=== PATIENT | male | born 1940 | race Caucasian/White ===

== ENCOUNTER 2017-12-26 17:57 | Observation (INO) | payer MEDICARE, OTHER ==
[~2017-12-26] VITALS: Ht 175.3 cm; Wt 117.2 kg
[~2017-12-26 17:57] MED LIST: "\\\"BP MED\\\""; ALDACTAZIDE 251 EACH PO; ASPIRIN EC325 MG PO; AUGMENTIN 875-1 EACH PO; AUGMENTIN XR1 TABLET PO; CEFPODOXIME PR200 MG PO; FENOFIBRATE160 MG PO; FLUTICASONE PRO16 GM NAS; GLIPIZIDE XL5 MG PO; GLIPIZIDE10 MG PO; LANTUS100 UNITS/ SQ; LIPITOR40 MG PO; LOSARTAN POTAS100 MG PO; LOSARTAN POTASS25 MG PO; MECLIZINE HCL25 MG PO; METFORMIN HCL1000 MG PO; METOPROLOL TART25 MG PO; MIRAPEX0.125 MG PO; NORCO 5-325 TA1 EACH PO; NOVOLOG100 UNITS/ IV; ONDANSETRON ODT8 MG PO; ONE TOUCH ULTR1 EACH VI; PRAMIPEXOLE0.125 MG PO; PRILOSEC20 MG PO; PROBIOTIC1 EAC1 PO; PROMETH-CODEIN 65 ML PO; PROTONIX40 MG PO; SIMVASTATIN80 MG PO; TRANSDERM-SCOP1 EA TD; TYLENOL325 MG PO; VERAMYST10 GM NAS
--- NOTE | 2017-12-26 22:57 | NUR ---
PT ARRIVES TO ROOM 127 FOR MED/SURG OBSERVATION ADMIT HOUSE CONVENIENCE. TRANSFERRED TO BED BY SLIDING PURPLE SHEET, PT ALERT AND ORIENTED, CURRENTLY HAVING SMALL AMOUNT OF EMESIS, ONE TIME DOSE OF REGLAN GIVEN IV. FAMILY ARRIVES WITH PT, DISCUSSED PLAN OF CARE. PT SETTLED IN BED, NO DISTRESS NOTED, DENIES PAIN OR NEEDS.
--- NOTE | 2017-12-27 01:30 | NUR ---
AWAKENS AND TRIES TO VOID INTO URINAL BUT CANNOT, ALTHOUGH ATTENDS ARE SATURATED. NEW ATTENDS PLACED AND PT REPOSITIONED BACK INTO BED WITH BED ALARM ON.
--- NOTE | 2017-12-27 03:30 | NUR ---
PT HAS BEEN SLEEPING THE LAST COUPLE OF HR, RESP EVEN AND UNLABORED.
--- NOTE | 2017-12-27 05:22 | NUR ---
LAB IN TO DRAW, PT AWAKENS EASILY.
--- NOTE | 2017-12-27 08:45 | NUR ---
PT ASSISTED UP TO CHAIR WITH WALKER. PT FULLY SATURATED ATTENDS CHANGED. PT GIVEN PARTIAL BED BATH, CLEAN SCRUB TOP IN PLACE. PT ABLE TO ASSIST WITH ADL CARES, WASHES OWN FACE AND HANDS. PT REFUSED ORAL CARE. VITALS WNL AT THIS TIME. OREDERED BREAKFAST FOR PT. BLOOD SUGAR IS 155 THIS AM.
--- NOTE | 2017-12-27 09:12 | NUR ---
IV SITE INTACT, NO REDNESS OR SWELLING NOTED, FLUIDS INFUSE EASILY, PT DENIES PAIN AT SITE. PT SITTING UP IN CHAIR AT THIS TIME EATING BREAKFAST WITH GUSTO. PT HAS CALL LIGHT WITHIN REACH, EDUCATED ON HOW TO USE CALL LIGHT. PT IS ALERT AND ORIENTED X4. ABLE TO FEED SELF.
--- NOTE | 2017-12-27 09:30 | NUR ---
PT ABLE TO EAT 100% OF HIS BREAKFAST, DENIES NAUSEA, SITTING UP IN CHAIR.
[2017-12-27] MEDS ORDERED: REGLAN10 MG PO (10:05)
--- NOTE | 2017-12-27 11:10 | NUR ---
PT ASSISTED TO GET DRESSED IN OWN CLOTHES, CLEAN ATTENDS PLACED ON PT. IV SITE REMOVED, TIP OF CATH INTACT, NO REDNESS OR SWELLING NOTE. ALL PERSONAL BELONGINGS RETURNED TO PT. PRINTED DC INSTRUCTIONS SENT WITH PT.
--- NOTE | 2017-12-27 14:30 | EKG ---
[facility] [address] [place] [address] Signed Normal sinus rhythm Right bundle branch block Inferior infarct , age undetermined Abnormal ECG When compared with ECG of 08-AUG-2016 13:25, Inferior infarct is now present Nonspecific T wave abnormality, worse in Anterior leads Confirmed by J CARLOS BURNS DO ([id number]) on 12/27/2017 2:30:42 PM Electronically Signed By: J CARLOS BURNS DO 12/27/17 1430 PATIENT NAME: ERNIE GOLD Electrocardiogram DATE OF : 36 PHYSICIAN: J CARLOS BURNS DO REPORT #: [id number] REPORT IS CONFIDENTIAL AND NOT TO BE RELEASED WITHOUT AUTHORIZATION
== END 2017-12-27 11:15 | disposition home or self-care (01) ==
LOC: ED 17:57 → CCU 17:59
PROVIDERS: ADMIT Student in an Organized Health Care Education/Training Program
DX: E11.43 Type 2 diabetes mellitus with diabetic autonomic (poly)neuropathy (principal); K31.84 Gastroparesis; I10 Essential (primary) hypertension; H91.90 Unspecified hearing loss, unspecified ear; M19.90 Unspecified osteoarthritis, unspecified site; E78.5 Hyperlipidemia, unspecified; I25.10 Atherosclerotic heart disease of native coronary artery without angina pectoris; J44.9 Chronic obstructive pulmonary disease, unspecified; J96.11 Chronic respiratory failure with hypoxia; I69.90 Unspecified sequelae of unspecified cerebrovascular disease; Z87.891 Personal history of nicotine dependence; Z66 Do not resuscitate; Z88.1 Allergy status to other antibiotic agents; Z79.82 Long term (current) use of aspirin; Z79.4 Long term (current) use of insulin; Z79.51 Long term (current) use of inhaled steroids; Z79.899 Other long term (current) drug therapy
CPT/HCPCS: 36415; 51798; 74177; 80048; 80053; 81001; 83036; 83605; 83690; 83735; 85025; 93005; 93010; 96361; 96372; 96374; 96375; 99285; G0378; J1650; J1815; J2765; J7030; J7040; Q9967

== ENCOUNTER 2020-08-16 22:59 | Inpatient (IN) | payer MEDICARE, OTHER ==
[~2020-08-16] VITALS: Ht 175.3 cm; Wt 102.8 kg
[~2020-08-16 22:59] MED LIST changes: +ALBUTEROL2.5 MG/3 M INH; +BAYER CHEWABLE81 MG PO; +BUDESONIDE0.5 MG/2 M INH; +FERROUS SULFAT325 MG PO; +FUROSEMIDE20 MG PO; +IPRAT-ALBUT 0.5-3 ML INH; +LEVOTHYROXINE25 MCG PO; +MIRALAX17 GM PO; +NOVOLOG FL100 UNIT/1 SUB-Q; -NOVOLOG100 UNITS/ IV; +POTASSIUM CHLO10 MEQ PO; +PREDNISONE20 MG PO; +REGLAN10 MG PO
--- OUTSIDE RECORDS SUMMARY | 2020-08-16 23:02 | XMS ---
PreManage Notification: ERNIE GOLD Security Study Director Events No recent Security Events currently on file CRITERIA MET - History of Sepsis Dx - [facility] - 2 Visits in 30 Days CARE PROVIDERS [facility] [employer]. \F\ [facility] PHONE: [phone] MABLE LEÓN [facility] 04/21/2018-Current PHONE: [phone] Daniela Stearns Environmental Monitoring Specialist/Health And Safety Specialist 06/06/2020-Current PHONE: [phone] CESAR LITTLEJOHN Internal Medicine 04/21/2018-Current PHONE: [phone] Jackeline has no Care Guidelines for this patient. ERichardDRichard VISIT COUNT (12 MO.) [address] [place] [address] ZAYRA Arango TOTAL 2 NOTE: Visits indicate total known visits. ED/UCC VISIT TRACKING (12 MO.) 08/16/2020 22:59 [facility] TYPE: Emergency COMPLAINT: - DIFFICULTY BREATHING 08/08/2020 14:02 [facility] TYPE: Emergency DIAGNOSES: - Fatigue - Essential (primary) hypertension - Bradycardia, unspecified - Altered Mental Status - Low Blood Pressure (Symptomatic) - Disorientation, unspecified INPATIENT VISIT TRACKING (12 MO.) 08/08/2020 14:02 [facility] TYPE: Internal Medicine DIAGNOSES: - Personal history of traumatic brain injury - Personal history of transient ischemic attack (TIA), and cerebral infarction without residual deficits - Somnolence - Bradycardia, unspecified - Disorientation, unspecified - Essential (primary) hypertension [email or web address]
[2020-08-16] MEDS ORDERED: K-TAB ER20 MEQ PO (23:32)
[2020-08-16] MEDS ORDERED: STAY AWAKE200 MG PO (23:33)
[2020-08-16] MEDS ORDERED: SENNA-S 8.6-501 EACH PO (23:40)
[2020-08-16] MEDS ORDERED: ELIQUIS5 MG PO (23:40)
[2020-08-16] MEDS ORDERED: METOPROLOL TART25 MG PO (23:42)
[2020-08-16] MEDS ORDERED: PROBIOTIC250 MG PO (23:43)
[2020-08-16] MEDS ORDERED: REGLAN10 MG PO (23:43)
[2020-08-16] MEDS ORDERED: SYMBICORT 16010.2 GM INH (23:44)
[2020-08-16] MEDS ORDERED: VOLTAREN ARTHRI20 GM TOP (23:46)
[2020-08-16] MEDS ORDERED: LANTUS100 UNITS/ SUB-Q (23:51)
[2020-08-16] MEDS ORDERED: HUMALOG100 UNITS/ SUB-Q (23:53)
--- NOTE | 2020-08-17 06:00 | NUR ---
PT ARRIVED TO ROOM 130 AT 0500 VIA STRETCHER, MOVED TO BED WITH DRAW SHEET. PT OPENED EYES ONCE TO VOICE, BUT DOES NOT FOLLOW COMMANDS. PT WITHDRAWS FROM PAINFUL STIMULI. PUPILS ARE EQUAL AND REACTIVE. LUNGS COARSE, DIM, 4L OXYMASK IN PLACE. HR REGULAR. BOWEL TONES ACTIVE. EVANS IN PLACE, DRAINING CONCENTRATED URINE. IV SITE PATENT TO RIGHT FOOT, ADDITIONAL IV SITE STARTED ON FIRST ATTEMPT BY BECKIE GARY IN RIGHT LOWER LEG. IV FLUIDS AND ANTIBIOTIC INFUSION STARTED. SKIN IS COOL, PERIPHERAL PULSES ARE WEAK, DOPPLER UTILIZED IN LOWER EXTREMITIES. DEEP EDEMA PRESENT IN BILATERAL ARMS, MODERATE EDEMA IN FEET.
--- NOTE | 2020-08-17 07:50 | NUR ---
IN PATIENT'S ROOM FOR ASSESSMENT AND VITALS. PT REMAINS SOMNOLENT, BUT DOES WITHDRAW TO PAIN AND DOES RAISE EYEBROWS IN AN ATTEMPT TO OPEN EYES WHEN NAME IS CALLED.PT DOES NOT EVER MAKE EYE CONTACT. PT IS VERY EDEMATOUS ON UPPER ARMS, WITH 2+ EDEMA NOTED. PT HAS IV SITES IN HIS RIGHT LEG AT THIS TIME. PT NOTED TO BE MOVING HIS LOWER LEGS IN A REFLEXIC TYPE OF MOTION. PT TURNED DOWN TO 2 L OXYMASK. OFF OF OXYGEN, PATIENT DESATURATED TO 87% WHILE SLEEPING BUT TURNED DOWN FROM 4 L TO 2 L. IVF CONTINUE AND IV ABX INFUSING AT THIS TIME. CONTINUE TO MONITOR.
--- NOTE | 2020-08-17 09:17 | NUR ---
Updated notes sent to [facility] as requested.
--- NOTE | 2020-08-17 09:37 | NUR ---
IN PATIENT'S ROOM TO PERFORM ASSESSMENT AND BLOOD GLUCOSE CHECK. PATIENT TURNED AND ASSESSED. PATIENT REPOSITIONED IN BED, ARMS ELEVATED WITH PILLOWS. PATIENT PLACED ON 2L NC. PATIENT APPEARS TO BE COMFORTABLE. OT IN THE ROOM TO SEE PATIENT.
[2020-08-17] MEDS ORDERED: LOSARTAN POTASS50 MG PO (11:32)
[2020-08-17] MEDS ORDERED: LEVOTHYROXINE75 MCG PO (11:35)
--- NOTE | 2020-08-17 11:43 | NUR ---
PATIENT CONTINUES TO REST IN BED AND NOTED TO BE MOVING AROUND A LITTLE MORE. PATIENT NOTED TO BE MOVING OXYGEN OFF OF HIS FACE AT TIMES. PT STILL DOES NOT HAVE SUSTAINED EYE OPENING BUT DOES RAISE EYEBROWS. PUPILS ARE EQUAL. PT MAKING ADEQUATE URINE OUTPUT. OT WORKED WITH PATIENT EARLIER AND TRIED TO DO LYHMPHATIC MASSAGE FOR HIS EDEMA IN LOWER ARMS. PATIENT HAS CONTINUED TO HAVE BRADYCARDIA AT TIMES, BUT REMAINS IN A SINUS RHYTHM, BUT DOES GO DOWN TO 38 AT TIMES BUT DOES NOT SUSTAIN THAT LOW. DR. BURNS IN TO SEE PATIENT EARLIER THIS AM. PLAN TO HAVE AN LP DONE ON THIS PATIENT WHEN BLOCK MECHANIC AVAILABLE TO DO THIS. CONTINUE TO MONITOR CLOSELY.
[2020-08-17] MEDS ORDERED: PULMICORT0.5 MG/2 M INH (11:59)
[2020-08-17] MEDS ORDERED: ENULOSE10 GM/15 M PO (12:01)
[2020-08-17] MEDS ORDERED: MILK OF MA400 MG/5 M PO (12:02)
[2020-08-17] MEDS ORDERED: ALBUTEROL2.5 MG/3 M INH (12:03)
[2020-08-17] MEDS ORDERED: DULCOLAX10 MG PR (12:03)
[2020-08-17] MEDS ORDERED: FLEET ENEMA133 ML PR ×2 (12:04→12:07)
[2020-08-17] MEDS ORDERED: ONDANSETRON ODT8 MG SL (12:12)
--- NOTE | 2020-08-17 13:14 | NUR ---
THIS RN INTO ROOM AFTER REPORT RECVD FROM DANNIELLE BUTTS FOR LUNCH RELIEF. PATIENT RESTING IN BED, EYES CLOSED. RR EVEN AND UNLABORED. IVF DECREASED TO 75 MLS/HR PER MD ORDER. CALL LIGHT RESTING ON PATIENTS LAP.
--- NOTE | 2020-08-17 13:27 | NUR ---
Spoke with pt's as per report pt is nonverbal today. She states pt has resided at [facility] x 6 1/2 years, was admitted to [facility] and then discharged to [facility]. She feels pt shoul transition to Hospice if the antibiotics don't work. Pt requires full care at SNF. Pt admitted to [facility] approx 24 hours ago and has been somu lent since.
--- NOTE | 2020-08-17 13:41 | NUR ---
NICOL SZYMANSKI IN TO UNIT, DISCUSSING PATIENT WITH DR. BURNS.
--- NOTE | 2020-08-17 13:42 | NUR ---
PER NICOL SZYMANSKI PATIENT WILL NEED TO HOLD ANTICOAGULATION FOR 3 DAYS PRIOR TO LUMBAR PUNCTURE. PER NICOL SZYMANSKI AND DR. BURNS PLAN FOR LP SATURDAY. PER CONTINUE ABX AND PLAN OF CARE AT THIS TIME.
--- NOTE | 2020-08-17 13:57 | EKG ---
[facility] [address] [place] [address] Signed Sinus rhythm with blocked premature atrial complexes Right bundle branch block Abnormal ECG When compared with ECG of 21-APR-2018 12:00, fusion complexes are no longer present premature atrial complexes are now present QT has shortened Confirmed by J CARLOS BURNS DO ([id number]) on 08/17/2020 1:57:05 PM Electronically Signed By: J CARLOS BURNS DO 08/17/20 1357 PATIENT NAME: ERNIE GOLD Electrocardiogram DATE OF : 36 PHYSICIAN: J CARLOS BURNS DO REPORT #: [id number] REPORT IS CONFIDENTIAL AND NOT TO BE RELEASED WITHOUT AUTHORIZATION
--- NOTE | 2020-08-17 14:16 | NUR ---
IN TO PATIENT'S ROOM TO EMPTY EVANS CATHETER. PATIENT RESTING IN BED. PATIENT RESPONDS TO NAME BUT THEN FALLS BACK TO SLEEP. NO SIGNS OF PAIN AT THIS TIME PER THE FLACC SCALE. PHYSICAL THERAPY IN TO WORK WITH PATIENT.
--- NOTE | 2020-08-17 14:59 | NUR ---
BECKIE SPICER INFORMED ME PT IS MOSTLY NON-VERBAL AND PRESENTLY ASLEEP. WILL NOT DISTURB PT. WILL CHECK BACK AGAIN
--- NOTE | 2020-08-17 15:01 | NUR ---
HEARD PATIENT CALLING OUT IN ROOM. WHEN ASKED WHAT WAS NEEDED PATIENT STATED "HONEY, I NEED A WARM QUILT". WARM BLANKETS GIVEN TO PATIENT. MOUTH SWAB WITH WATER WAS ALSO GIVEN TO PATIENT. WHEN ASKED, PATIENT STATES THAT HE IS IN THE HOSPITAL IN [place]. PATIENT HAS SOME COMPLAINTS OF COCCYX DISCOMFORT. PATIENT REPOSITIONED.
--- NOTE | 2020-08-17 17:06 | NUR ---
IN TO PATIENTS ROOM TO CHECK ON HIM. AT BEDSIDE. STATED THAT PATIENT WANTED SOMETHING TO DRINK. PATIENT TOLERATED A FEW SIPS OF WATER. PATIENT HAS NO COMPLAINTS AT THIS TIME.
--- NOTE | 2020-08-17 18:28 | NUR ---
IN TO SEE PATIENT. IS AT BEDSIDE, STATES PATIENT IS HUNGRY. PATIENT RESPONDS TO VOICE. WHEN ASKED, PT STATED "VERY HUNGRY". PATIENT ABLE TO TOLERATE 8OZ ENSURE. PATIENT STATES THAT HE IS IN NO DISCOMFORT. EVANS CATHETER EMPTIED.
--- NOTE | 2020-08-17 19:50 | NUR ---
SHIFT REPORT RECEIVED FROM SN CECIL AND BECKIE SPICER. PT CURRENTLY RESTING IN BED, 2L O2 VIA NC IN PLACE. R.T. IN AT THIS TIME FOR SCHEDULED BREATHING TREATMENTS.
--- NOTE | 2020-08-17 20:30 | NUR ---
ASSESSMENT COMPLETED. PT IS LETHARGIC AND SOMEWHAT SLOW TO RESPOND, BUT IS ANSWERING QUESTIONS. SLIGHTLY CONFUSED TO PLACE AND DATE; KNOWS WE ARE IN THE HOSPITAL, BUT THINKS WE ARE IN [facility] AND THINKS THE YEAR IS 2019. REPORTS PAIN TO HIM BOTTOM, PRN TYLENOL GIVEN AND PT REPOSITIONED ONTO RIGHT SIDE WITH PILLOW SUPPORT. LUNGS CLEAR, DIM, 2L O2 VIA NC IN PLACE. HR IRREGULAR, RATE 70'S. BOWEL TONES ACTIVE. EVANS PATENT, CATH CARE PROVIDED. SKIN GROSSLY INTACT, EDEMA PRESENT IN ARMS AND FEET, LIMBS ELEVATED ON PILLOWS. EXTREMITIES COOL WITH SLOW CAP REFILL, PERIPHERAL PULSES WEAK AND DOPPLER USED FOR PEDAL PULSES. IV SITES INTACT AND PATENT. PT TOLERATED PILLS CRUSHED IN APPLESAUCE WELL.
--- NOTE | 2020-08-17 21:57 | NUR ---
PT COULD BE HEARD CALLING OUT. PT REPORTS THAT HIS BOTTOM IS STILL HURTING. REMINDED HIM THAT I GAVE HIM TYLENOL AND ALSO REPOSITIONED HIM ONTO HIS LEFT SIDE WITH PILLOW SUPPORT, LIMBS REMAIN ELEVATED. ALSO LOWERED HEAD OF BED SLIGHTLY TO RELIEVE SOME PRESSURE. ANTIBIOTIC INFUSION STARTED. PT NOW SLEEPING AND LIGHTLY SNORING.
--- NOTE | 2020-08-18 00:01 | NUR ---
PT SLEEPING, NO APPARENT DISTRESS, RESPIRATIONS EVEN AND UNLABORED. LUNGS REMAIN CLEAR/DIM, 2L O2 IN PLACE. HR OCCASIONALLY IRREGULAR, RATE 70'S. BOWEL TONES ACTIVE. IV SITES REMAIN INTACT, FLUIDS INFUSING WNL. PILLOW REMOVED FROM BEHIND PT, NOW POSITIONED SUPINE, EXTREMITIES REMAIN ELEVATED.
--- NOTE | 2020-08-18 04:21 | NUR ---
PT SLEEPING, ASSESSMENT COMPLETED AND UNCHANGED. PT REPOSITIONED ONTO RIGHT SIDE WITH PILLOW SUPPORT. IV SITES INTACT AND PATENT. EVANS PATENT. VITAL SIGNS STABLE.
--- NOTE | 2020-08-18 04:59 | NUR ---
PT CALLED OUT, NEEDED DRINK OF WATER. WAS ABLE TO DRINK WITHOUT ISSUE. CALL LIGHT WITHIN REACH. NO FURTHER REQUESTS AT THIS TIME.
--- NOTE | 2020-08-18 05:57 | NUR ---
PT REPOSITIONED ONTO LEFT SIDE WITH PILLOW SUPPORT. LIMBS REMAIN ELEVATED ON PILLOWS. CALL LIGHT WITHIN REACH.
--- NOTE | 2020-08-18 07:18 | NUR ---
PT COMPLAINING OF PAIN TO BOTTOM, PRN TYLENOL GIVEN. PT ABLE TO SWALLOW PILLS WHOLE WITH WATER, TOLERATED WELL.
--- NOTE | 2020-08-18 07:18 | NUR ---
REPORT FROM WELLNESS PROGRAM ADMINISTRATOR RECIEVED. PT REPORTS PAIN IN HIS BOTTOM AND TYLENOL ADMINISTERED. PT SLOW TO RESPOND AND BREATHING MOSTLY THROUGH HIS MONTH. CALL LIGHT WITHIN REACH AND HEAD OF BED SLIGHTLY ELEVATED. WILL CONTINUE TO MONITOR CLOSELY.
--- NOTE | 2020-08-18 07:30 | NUR ---
PATIENT SHIFT REPORT RECIEVED FROM CORRECTIONAL MEDICINE PHYSICIAN RN. PATIENT RESTING IN BED AT THIS TIME. CORRECTIONAL MEDICINE PHYSICIAN RN IN TO GIVE TYLENOL PER PATIENT REQUEST. STUDENT NURSE GINGER WILL BE TAKING CARE OF PATIENT WITH THIS RN TODAY. NO OTHER NEEDS AT THIS TIME. WILL CONTINUE TO CLOSELY MONITOR.
--- NOTE | 2020-08-18 08:06 | NUR ---
ASSESSMENT COMPLETE. PT REPORT "CAN YOU MAKE MY ASS STOP HURTING" STUDENT NURSE GINGER ALONG WITH PAYROLL MASTER ADJUSTED PT AND PLACED PILLOW UNDER HIS BOTTOM. PT HAS BILATER PITTING EDEMA IN HIS UPPER EXTREMITIES. EVANS CATH IN PLACE WITH YELLOW URINE OUTPUT. LUNG SOUNDS CLEAR IN THE UPPER LOBES ANDS DIMINISHED IN THE LOWER LOBES. ROLLED TOWEL PLACED UNDER PT WRIST. PT RESTING QUIETLY. HEAD OF ELEVATED SLIGHTLY. CALL LIGHT WITHIN REACH. WILL CONTINUE TO MONITOR CLOSELY.
--- NOTE | 2020-08-18 09:03 | NUR ---
IN WITH STUDENT NURSE GINGER TO GIVE AM MEDICATIONS. ASSESSMENT COMPLETED. PATIENT IS AWAKE AND TALKING. BREAKFAST AT THE BEDSIDE. WILL CONTINUE TO CLOSELY MONITOR.
--- NOTE | 2020-08-18 09:59 | NUR ---
Updated notes faxed to Crystal at [facility] per request.
--- NOTE | 2020-08-18 10:14 | NUR ---
PT RESTING IN BED WITH EYES CLOSED. ANTIBIOTIC IV SWITCHED OUT IN THE UPPER LEFT ARM.HEAD OF BED ELEVATED. LEGS ARE ADJUSTED TO HELP RELIEVE THE PRESSURE ON HIS BOTTOM. NO OTHER CONCERNS AT THIS TIME. CALL LIGHT WITHIN REACH. WILL CONTINUE TO MONITOR CLOSELY.
--- NOTE | 2020-08-18 10:44 | NUR ---
MD BURNS ON THE FLOOR. ASKED HOW PT WAS DOING. STUDENT NURSE INFORMED HIMS THAT PT WAS NOW CALLING FOR THE NURSE INSTEAD OF HONEY. THAT HE IS ABLE TO EAT SOFT FOOD AND THAT HE ATE 75% OF BREAKFAST. WAS ALSO INFORMED THAT PT TOLERATES SWOLLOWING PILLS WELL. WILL CONTINUE TO MONITOR CLOSELY FOR CHANGES.
--- NOTE | 2020-08-18 12:11 | NUR ---
ASSESSMENT COMPLETE. PT SWITCHED TO ROOM AIR TO SEE HOW WELL IT WILL BE TOLERATED. HE IS VERY TIRED AND BREATHS WITH HIS MOUTH. PT UNDERSTOOD THAT HE WAS IN THE HOSPITAL. KNOWS HIS NAME AND DATE OF . DID NOT KNOW WHY HE WAS IN THE HOSPITAL. SALINE LOCKED ALL THREE IV SITES, ALL WITHIN NORMAL AND FLUSH. SLOW TO RESPOND. BED ELEVATED. CALL LIGHT WITHIN REACH. WILL CONTINUE TO MONITOR CLOSELY.
--- NOTE | 2020-08-18 12:30 | NUR ---
PATIENT RESTING IN BED AT THIS TIME. STAFF HAVE CONTINUED TO REPOSITION PATIENT EVERY 2 HOURS IF NOT SOONER PER PATIENT REQUEST. PATIENTS BLOOD SUGAR DONE. INSULIN GIVEN. PATIENTS FOOD ARRIVED AT THE BEDSIDE. STUDENT NURSE IN TO ASSIST PATIENT. PATIENT HAS BEEN ON RA WITH SPO2 AROUND 93%. WILL CONTINUE TO CLOSELY MONITOR.
--- NOTE | 2020-08-18 14:37 | NUR ---
PT LAYING IN BED WITH HEAD ELEVATED. STARTED PT ON MASK WITH 1 LITER OF OXYGEN. O2 NOW IN MID 90S INSTEAD OF LOW 90S. BEGAN PT CEFEPIME. URINE IS CLEAR AND DILUTE. PT HAD BECOME MORE DISORIENTED TO PLACE. PT STATES "HONEY DO YOU WANT TO GET IN THE SHOWER WITH ME. " WHEN ASKING PT WHERE HE IS HE STATES "AT HOME IN MY CHAIR" REORIENTED TO PLACE. PT RESTING IN BED. CALL LIGHT WITHIN REACH. WILL CONTINUE TO MONITOR CLOSELY.
--- NOTE | 2020-08-18 15:03 | NUR ---
PATIENT IS BACK ON 1L VIA OXYMASK WHILE SLEEPING. PATIENTS SPO2 WITH SLEEP DROPS TO 90% ON RA. WITH 1L OXYMASK PATIENTS SPO2 94%. WILL CONTINUE TO CLOSELY MONITOR. RT IN AT THE BEDSIDE AT THIS TIME.
--- NOTE | 2020-08-18 17:26 | NUR ---
No change in plan, pt will return to [facility] when he is cleared medically.
--- NOTE | 2020-08-18 18:29 | NUR ---
PATIENT HAD A LARGE LOOSE BM. 4 STAFF IN TO ASSIST PATIENT AND CHANGE ALL BEDDING AND CLEAN PATIENT. PATIENT TOLERATED WELL. PATIENTS IS WAITING IN THE WAITING ROOM WHILE STAFF FINISH CLEANING UP IN THE ROOM. PATIENT TURNED WITH PILLOW SUPPORT AND RESTING NOW ON HIS RIGHT SIDE. WILL CONTINUE TO CLOSELY MONITOR.
--- NOTE | 2020-08-18 19:54 | NUR ---
REPORT RECEIVED FROM KOSTAS RN, WILL CONTINUE PLAN OF CARE.
--- NOTE | 2020-08-18 20:54 | NUR ---
THIS RN IN TO ASSESS PT AND ADMINISTER ORDERED MEDICATION. PT LAYING IN BED AWAKE. PT ABLE TO ANSWER HIS FULL NAME AND DATE OF AFTER BEING ASKED. ORDERED MEDICATION ADMINISTERED, PT ABLE TO TAKE ORAL MEDICATION WITHOUT DIFFICULTY. PT CURRENTLY SALINE LOCKED AND ON 1L O2 OXYMASK, SPO2 AT 93%. PT REPORTS NO PAIN WHEN ASKED. EVANS TEMP PROBE IS 101.1 AT THIS TIME ORAL TEMP READS 98.6. 1 UNIT INSULIN GIVEN FOR A BLOOD GLUCOSE OF 168. PT REPORTS NO FURTHER NEEDS WHEN ASKED AT THIS TIME, PT ASSISSTED WITH DRINKING WATER. WILL CONTINUE PLAN OF CARE. CALL LIGHT IN REACH, BED IN LOWEST POSITION, 1L O2 ON PT VIA OXY MASK, PT SALINE LOCKED AT THIS TIME.
--- NOTE | 2020-08-18 22:30 | NUR ---
THIS RN IN TO ASSESS PT AND ADMINISTER ORDERED IV ABX (SEE MAR). PT LAYING IN BED SLEEPING WITH OXYMASK IN PLACE AT 1L, SPO2 AT 93%. PT AWOKE WHEN THIS RN STARTED THE NEW BAG OF IVF BUT WENT BACK TO SLEEP AFTERWARDS. IV ABX NOW INFUSING AT ORDERED RATE, PT REPORTS NO FURTHER NEEDS AT THIS TIME, WILL CONTINUE PLAN OF CARE. CALL LIGHT IN REACH, BED IN LOWEST POSITION, IV ABX INFUSING, OXYMASK IN PLACE.
--- NOTE | 2020-08-19 00:25 | NUR ---
THIS RN IN TO ASSESS PT AND TAKE VITALS. PT LAYING IN BED AWAKE AND ORIENTED TO SELF BUT NOT LOCATION. PT ASSESSED, VITALS TAKEN, ORAL TEMP WAS 99.9, EVANS TEMP WAS 101.1. PT REPORTS NO PAIN WHEN ASKED. PT WAS INCONTINENT AND HAD A LIQUID BM, LINENS CHANGED, PERICARE DONE, NEW ATTENDS IN PLACE. PT REPOSITIONED IN BED WITH THE HELP OF RN BROOKE CUMMINS LIFT USED. PT O2 PUT UP TO 2L VIA OXYMASK DUE TO SATURATIONS IN THE 89%. PT NOW LAYING IN BED, IV ABX INFUSING, OXYMASK IN PLACE, BED IN LOWEST POSITION, CALL LIGHT IN PLACE.
--- NOTE | 2020-08-19 00:40 | NUR ---
THIS RN IN TO ADMINISTER PRN TYLENOL FOR AN ELEVATED TEMPERATURE OF 100.9 ON THE EVANS AND 99.9 ORAL. PT ABLE TO TAKE PO MEDICATION WELL WITH WATER. PT ALSO GIVEN ICE WATER TO DRINK AFTER MEDICATION ADMINISTRATION. PT REPORTS NO NEEDS WHEN ASKED, WILL CONTINUE PLAN OF CARE. IV ABX INFUSING, PT ON 2L O2 OXYMASK, BED IN LOWEST POSITION, CALL LIGHT IN REACH.
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
--- NOTE | 2020-08-19 07:15 | NUR ---
Report given, orders acknowledged. Patient sleeping in bed with 2L oxymask in place, sats in the mid-90's. Call light within reach.
--- NOTE | 2020-08-19 08:25 | NUR ---
Attempted to speak with pt, he is sleeping and does not awaken to voice. No change in plan for dc.
--- NOTE | 2020-08-19 09:00 | NUR ---
Patient sleeping in bed, rouses to voice. Patient hard of hearing. Patient slow to respond and responds in one word sentences. 2L oxymask in place, SpO2 of 94-95%. Crisostomo catheter in place, draining yellow urine. Vital signs taken, assessment complete. Edema noted in bilateral lower extremities and upper extremities. Patient lifted with bianca lift and repositioned in bed for comfort. AM medications given, patient sitting up with aspiration precautions in place. Small coughs noted after swallowing pills. BG of 125, no insulin given. Call light within reach.
--- NOTE | 2020-08-19 10:44 | NUR ---
OT in room fitting patient for pair of arm sleeves to help reduce extremity swelling
--- NOTE | 2020-08-19 11:42 | NUR ---
Patient sleeping in bed, respirations even and unlabored. 2L oxymask in place, SpO2 of 94%, HR in the 60-70's. Call light within reach.
--- NOTE | 2020-08-19 13:31 | NUR ---
RT in room administering breathing tx
--- NOTE | 2020-08-19 15:00 | NUR ---
Patient on bedpan, no BM produced. Patient cleaned. Physical therapy in room working with patient on leg exercises. Patient hoyered to chair with nursing staff assist. Heel protectors in place, aguirre catheter continues to drain yellow urine. Patient rouses to voice but is minimally responsive with words. Will respond "okay" occassionally when the plan of care is discussed. Patient saline locked, no further needs at this time. Call light within reach.
--- NOTE | 2020-08-19 16:05 | NUR ---
Patient's in room visiting. Vital signs taken, assessment complete. Patient sleeping in chair with 2L oxymask in place, SpO2 in the mid-90's. Call light within reach.
--- NOTE | 2020-08-19 18:10 | NUR ---
PT WAS ASSISSTED WITH HIS MEAL BY HIS . I REMOVED THE TRAY AND PER REQUEST RETURNED WITH AN ADDITIONAL COLD WATER CUP, WHICH I PLACED AT THE BED SIDE TABLE. PATIENT IS IN THE RECLINER WITH THE NEXT TO HIM. CALL LIGHT WITHIN REACH OF BOTH PATIENT AND . I GAVE VERBAL DIRECTIONS TO THE TO HOW TO USE IT IF NEEDED. ALL QUESTIONS ANSWERED. NO ADDITIONAL NEEDS AT THIS TIME.
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
--- NOTE | 2020-08-19 21:42 | NUR ---
PT MOVED BACK TO BED VIA BROOKE AND PLACED ON RIGHT SIDE WITH PILLOW SUPPORT.
--- NOTE | 2020-08-20 00:12 | NUR ---
ASSESSMENT COMPLETED AND UNCHANGED. CHANGED OUT LINENS UNDERNEATH PATIENT. CATH CARE PROVIDED. PT REPOSITIONED TO LEFT SIDE WITH PILLOW SUPPORT. PULSE OX PROBE MOVED FROM LEFT EAR TO RIGHT EAR LOBE.
--- NOTE | 2020-08-20 02:31 | NUR ---
PT REPOSITIONED ONTO RIGHT SIDE WITH PILLOW SUPPORT. PULSE OX PROBE MOVED TO LEFT EAR LOBE. EVANS LEAKING, ADDED 5ML TO BALLOON. NEW CHUX AND AND ATTEND PLACED UNDER PT.
--- NOTE | 2020-08-20 04:38 | NUR ---
PT REPOSITIONED ONTO LEFT SIDE WITH PILLOW SUPPORT. PULSE OX PROBE MOVED TO RIGHT EARLOBE. ASSESSMENT COMPLETED AND UNCHANGED. ATTENDS APPEAR DRY AT THIS TIME.
--- NOTE | 2020-08-20 06:17 | NUR ---
PT REPOSITIONED TO RIGHT SIDE WITH PILLOW SUPPORT. WET SPOT NOTED ON ATTENDS, NEW ATTENDS PLACED ON PT.
--- NOTE | 2020-08-20 07:36 | NUR ---
RECIEVED REPORT FROM MUSSEL OPENER ON PT. PT ASLEEP IN BED WITH EYES CLOSED, HEAD ELEVATED. BREATHING MOSTLY THROUGH HIS MOUTH. NO LABORED BREATHING. EVANS IN PLACE. NO COMPLICATIONS. PT IS REPORTED AT A HOUSE CONVINENCE. CALL LIGHT WITHIN REACH. WILL CONTINUE TO MONITOR CLOSELY.
--- NOTE | 2020-08-20 08:47 | NUR ---
PT ASSESSMENT COMPLETE. PT KNOWS HIS NAME. SLOW TO RESPOND. EASLIY AROUSED. MEDS GIVEN WITH FLUID WITHOUT COMPLICATIONS WHOLE WITH FLUIDS. PT DOES BURP AFTER DRINKING FLUIDS. EDEMA IN THE UPPER BILATERAL EXTREMITIES. CALL LIGHT WITHIN REACH. NO CONCERNS AT THIS TIME. WILL CONTINUE TO MONITOR CLOSELY.
--- NOTE | 2020-08-20 10:01 | NUR ---
NURSE ASSISTED PT IN EATING BREAKFAST. ENSURE MILKSHAKE WITH EXTRA PROTEIN POWDER, CREAM OF WHEAT AND YOGURT. PT TOLERATED WELL. RESPONDS TO VOICE AND EASY TO AROUSE. PT CHANGED POSITION AND RESTING IN BED WITH HEAD ELEVATED. PT FALLS ASLEEP QUICKLY. CALL LIGHT WITHIN REACH. NO OTHER CONCERNS AT THIS TIME. WILL CONTINUE TO MONITOR CLOSELY.
--- NOTE | 2020-08-20 13:37 | NUR ---
EVANS CATHETER REMOVED. 15 ML TAKEN OUT. NO COMPLICATION. APPEARS TO HAVE A SMALL AMOUNT OF BLOOD WHEN REMOVED WITH NO VISUAL BLEEDING. PT WAS LIFTED WITH BROOKE AND PLACED IN CHAIR WITH HELP OF OT NURSE AND JUAQUIN AND STUDENT NURSE. WHEN PT NAME IS SAID HE REPLIES "WHAT DEAR" AND THEN WILL GO BACK TO SLEEP. TRANSFERRED WITH BROOKE WITHOUT COMPLICATIONS. NO OTHER CONCERNS. WILL CONTINUE TO MONIOR CLOSELY.
--- NOTE | 2020-08-20 14:17 | NUR ---
PT UP IN CHAIR FACING OUTSIDE. PT RESPONDS TO NAME. SLOW RESPOND TO QUESTIONS. ORIENTED TO NAME, WIFES NAME AND PLACE. IV ANTIBIOTICS COMPLETE AND IV SITE SALINE LOCKED. RL LEAD WAS REPLACED AND READJUST BLOOD PRESSURE CUFF. NO OTHER CONCERNS. CALL LIGHT WITH IN REACH. FEET ELEVATED. WILL CONTINUE TO MONITOR.
--- NOTE | 2020-08-20 16:15 | NUR ---
PT ASSESSMENT COMPLETE. PT IS AWARE HE IS AT [facility]. WAS INCONTINENT FOR URINE. CHANGED AND MOVED FROM CHAIR TO BED. PT NOT AWARE TO TIME DATE OR AGE. WHEN ASKED NAMES HE WOULD RESPOND WITH HIS LAST NAME FIRST. HIS ARRIVED AFTER CHANGED AND BACK IN BED AND PT KNEW HIS AND EVEN SPELLED HER NAME. HARD OF HEARING AND SLOW TO RESPOND. MAY TAKE PT LONG 10 SECONDS TO RESPOND. WHEN ROLLING PT ON TO HIS SIDE PT HELD ON TO THE RAIL. PT RESTING IN BED WITH HEAD OF BED ELEVATED, CALL LIGHT WITHIN REACH. NO CONCERNS AT THIS TIME. WILL CONTINUE TO MONITOR CLOSELY.
--- NOTE | 2020-08-20 17:15 | NUR ---
PT IN BED WITH HEAD ELEVATED. DROWSY BUT EASY TO AROUSE WITH NAME. PT WAS INCONTINENT SO WAS CHANGED AND CLEANED. PT READY FOR DINNER. TALKING AND ORIENTED TO PLACE AND NAME. DINNER ORDERED AND SHOULD ARRIVE SHORTLY. P REPORTING TO BE HUNGRY. NO INSULIN ADMINISTERED. IS AT BEDSIDE AND HOLDING HIS HAND. NO CONCERNS AT THIS TIME. WILL CONTINUE TO MONITOR CLOSELY.
--- NOTE | 2020-08-20 19:42 | NUR ---
CHECKED ON PT; PT IS SLEEPING WITH EYES CLOSED, EVEN UNLABORED BREATHING NOTED. PT'S IS AT BEDSIDE. NO APPARENT SIGNS OF DISTRESS.
--- NOTE | 2020-08-20 20:18 | NUR ---
CALL LIGHT ANSWERED. PT'S REPORTS THAT PT STATES THAT HE NEEDS TO HAVE A BM. THIS RN CHECKED DEPENDS AND PT HAD ALREADY HAD A BM. WITH HELP FROM BECKIE DOUGLAS, PT CLEANED AND NEW DEPENDS APPLIED. PT TOLERATED WELL. PT REPOSITIONED WITH PILLOWS UNDER RT HIP AND LEGS. NO FURTHER NEEDS AT THIS TIME.
--- NOTE | 2020-08-20 22:20 | NUR ---
RECEIVED REPORT FROM [facility]XTON BUTTS IN CCU. WILL BRING PT OVER TO MEDICAL FLOOR.
--- NOTE | 2020-08-20 22:25 | NUR ---
BROUGHT PT OVER WITH ASSISTANCE FROM LUCIO BUTTS GENERAL HELPER. PT IS AWAKE BUT NOT ANSWERING ANY QUESTIONS. TRAY TABLE WITH WATER IS CLOSE AND CALL LIGHT IS CLOSE. BED ALARM IS ON.
--- NOTE | 2020-08-20 22:39 | NUR ---
REPOSITIONED PT WITH PILLOWS UNDER EACH SIDE TO FLOAT WITH HELP FROM LUIZ PEDROZA. PT IS NOW RESTING WITH EYES CLOSED AGAIN, RR IS EVEN AND NONLABORED. CALL LIGHT IS CLOSE.
--- NOTE | 2020-08-21 00:15 | NUR ---
PT IS RESTING WITH EYES CLOSED, RR ARE EVEN AND NONLABORED. CALL LIGHT IS CLOSE AND BED ALARM IS ON.
--- NOTE | 2020-08-21 02:35 | NUR ---
WOKE PT TO CHECK ATTENDS, PAD INSIDE WAS WET WITH URINE-PAD CHANGED. REMOVED PILLOWS FROM BEHING PT TO LAY FLAT FOR A WHILE. ASSESSMENT COMPLETE, PT FELL ASLEEP DURING ASSESSMENT. PT IS NOT ANSWERING ANY OF THIS RN'S QUESTIONS. PT IS ON TELE 1 IN SR AT THIS TIME. REMOVED IV FROM R LEG IT WAS LEAKY. PT TOLERATED WELL, GAUZE INPLACE. CALL LIGHT IS CLOSE AND BED ALARM IS ON.
--- NOTE | 2020-08-21 04:31 | NUR ---
CHANGED PT'S ATTENDS WITH HELP OF LUIZ PEDROZA. PT REPOSITIONED WITH PILLOWS UNDER HIS R SIDE, HEEL PROTECTORS ANE STILL IN PLACE. VS TAKEN AND ENTERED. PT OPENED HIS EYES DURING CHANGING AND SAID "WHAT DO YOU WANT ME TO DO?". CALL LIGHT IS CLOSE AND BED ALARM IS ON.
--- NOTE | 2020-08-21 05:58 | NUR ---
PT IS RESTING WITH EYES CLOSED, RR IS EVEN AND NONLABORED. CALL LIGHT IS CLOSE AND BED ALARM IS ON.
--- NOTE | 2020-08-21 06:46 | NUR ---
IN ROOM TO ADMINISTER THYROID MED. PT NOT RESPONDING TO QUESTIONS AT THIS TIME. REPOSITIONED PT BACK TO FLOAT WITH PILLOWS UNDER BOTH HIPS. CALL LIGHT IS CLOSE AND BED ALARM IS ON.
--- NOTE | 2020-08-21 08:00 | NUR ---
REPROT RECEIVED. PT IN BED WITH EYES CLOSED. RESPIRATIONS EQUAL AND NONLABORED. PT CHICKALOON AND WAKES TO LOUD VOICE. 2L NC IN PLACE. CALL LIGHT IN REACH.
--- NOTE | 2020-08-21 08:30 | NUR ---
REPOSITIONED AND CHANGED ATTENDS FOR VERY LARGE INCONTINENT VOID. PT ABLE TO ASSIST IN TURNIGN SIDE TO SIDE. COCCYX VISUALIZED WITH NO S/SX OF BREAKDOWN. PT VERY DROWSY ONLY WAKING FOR SMALL MOMENTS THEN FALLING BACK ASLEEP.VITALS TAKEN AND BREAKFAST AT BEDSIDE. PT ASSISTED IN EATING.
--- NOTE | 2020-08-21 10:01 | NUR ---
CALLED [facility] REGARDING DISCHARGE BACK TO THERE FACILITY AND THEY STATED THEY COULD TAKE HIM TODAY, FAXED ORDERS.
--- NOTE | 2020-08-21 11:30 | NUR ---
REPOSITIONED IN BED AND CHANGED ATTENDS FOR LARGE INCONTINENT VOID. 2L NC IN PLACE. PT WAKES WITH LOUD VERBAL STIMULI THEN QUICKLY FALLS BACK ASLEEP. CALL LIGHT IN REACH.
--- NOTE | 2020-08-21 14:00 | NUR ---
pt reports he feels the urge to have a bm. pt asisted to bedpan. pt is unable to stay awake to have bowel movement. pt woken up multiple times to try and quickly falls back asleep. attends changed for xl void. pt repositioned. call light in reach.
--- NOTE | 2020-08-21 14:15 | NUR ---
PATIENT IS RESTING.PATIENT WANTS TO EAT HIS LUNCH IN A LITTLE BIT. VITALS AND I&OS ARE DONE ADN DOCUMENTED. FRESH WATER GIVEN. CALL LIGHT IS IN REACH. NO FURTHER NEEDS AT THIS TIME.
--- NOTE | 2020-08-21 19:04 | NUR ---
PT CHANGED FOR LARGE INCONTINETN VOID AND LARGE BM. REPOSITIONED. AT BEDSIDE. PT ATE 100% OF DINNER.
--- NOTE | 2020-08-21 19:42 | NUR ---
PATIENT'S ASSESSMENT COMPLETE WITH RT CHRISTINA STARTING A NEB TREATMENT. PATIENT HAD NO CURRENT CARE NEEEDS AND PATIENT'S JUST WENT OME FOR THE EVENING, CALL LIGHT IS IN REACH.
--- NOTE | 2020-08-21 22:24 | NUR ---
PATIENT REPOSTIONED TO HIS RIGHT SIDE AFTER CHANGING WET ATTENDS AND EMERSON CARE. PATIENT TOOK HIS PM PILLS WITH SOME APPLE SAUCE AND DRANK SOME WATER. NEW WARM BLANKET GIVEN, WATER REFILLED. CALL LIGHT IN REACH AND BED ALARM ON. PATIENT DENIES PAIN.
--- NOTE | 2020-08-21 22:25 | NUR ---
V/S AND I&O'S COMPLETED. PATIENT'S INCONTINENT ATTENDS CHANGED. PATIENT REPOSITIONED. BED ALARM ON FOR SAFETY.
--- NOTE | 2020-08-22 00:22 | NUR ---
PATIENT TURNED TO HIS BACK AND ATTENDS CHECKED AND ARE DRY. PATIENT HAS NO OTHER CARE NEEDS AT THIS TIME. CALL LIGHT IS IN REACH AND BED ALARM IS ON.
--- NOTE | 2020-08-22 02:00 | NUR ---
PATIENT RESTING QUIETLY, EYES CLOSED, RESPIRATIONS REGULAR AND EVEN, CALL LIGHT IN REACH AND BED ALARM ON.
--- NOTE | 2020-08-22 03:00 | NUR ---
PATIENT REPOSITION TO HIS LEFT SIDE, ATTENDS CHANGED FOR URINE. YOVANY BAIRD IN ROOM WITH THIS RN. PATIENT HAS NO OTHER CARE NEEDS AT THIS TIME. BED ALARM ON AND CALLLIGHT IN REACH.
--- NOTE | 2020-08-22 06:00 | NUR ---
PATIENT JUST CHANGED WITH NEW ATTENDS AND AND POSITION CHANGED. PATIENT HAS RESTED WELL THROUGH THE NIGHT AND HAS DENIED PAIN. EMERSON CARE DONE X3 WITH ATTENDS CHANGES. PATIENT HAS TAKEN HIS MEDS WITHOUT DIFFICULTY. LUNG SOUND REMAIN DEMINISHED, WITH SOME EXPIRATORY WHEEZE IN ALL LUNG FEILDS THIS MORNING. PATIENT TAKING PO FLUIDS, HAS EXCELLENT URINE OUTPUT, AND VS REMAIN STABLE WITH A SLIGHTLY ELEVATED B/P, BUT WITHIN HOSPITALIST PARAMETERS. CALL LIGHT IN REACH AND BED ALARM ON.
--- NOTE | 2020-08-22 07:00 | NUR ---
Received message from over the weekend from pt's . She would like pt to return to [facility]. I called her back at [phone]. She states she has spoken with [facility] and with [facility]. Discussed I will need to confirm with both to see when and if this can happen.
--- NOTE | 2020-08-22 07:00 | NUR ---
BEDSIDE HANDOFF REPORT RECEIVED FROM FRONT OFFICE ASSOCIATE RN. PT SLEEPING, LEFT UNDISTURBED.
--- NOTE | 2020-08-22 07:17 | NUR ---
FINISHED REPORT TO [facility]OST[facility] BUTTS.
--- NOTE | 2020-08-22 08:40 | NUR ---
PT SITTING UP IN BED EATING BREAKFAST WHILE BEING ASSISTED BY MILLIE AUTOMOTIVE QUALITY MANAGER. MORNING MEDS GIVEN. PT WAS ABLE TO FOLLOW COMMANDS AND SWALLOW ONE PILL AT A TIME. PT EXPRESSED 0/10 PAIN AT THIS TIME. PT IS ON OXYGEN 2L NC. LUNG SOUNDS WERE DIMINISHED IN THE BASES BUT CLEAR IN THE UPPER PORTIONS. ACTIVE BOWEL TONES PRESENT. SALINE LOCKED WITH AN 18 GAUGE IV AND REMAINS WNL. PT IS ORIENTED TO SELF. PT CONTINUES TO EAT WITH MILLIE AUTOMOTIVE QUALITY MANAGER AT THIS TIME AND DENIES ANY OTHER NEEDS. CALL LIGHT IS WITHING REACH. BED IN LOWEST POSITION. BED ALARM IS IN PLACE.
--- NOTE | 2020-08-22 09:00 | NUR ---
both nares swabbed for covid-19 without complication sample taken to [facility] for rapid testing.
--- NOTE | 2020-08-22 10:31 | NUR ---
PATIENT IS SLEEPING. FRESH WATER GIVEN. VITALS AND I&OS ARE DONE AND DOCUMENTED. CALL LIGHT IS IN REACH. NO FURTHER NEEDS AT THIS TIME.
--- NOTE | 2020-08-22 11:00 | NUR ---
Spoke with Maddy from [facility]. She states they are unable to take Vignesh today. He can return there on [facility]osp[facility], but they will need everything set up first. She requests pt return to [facility] until they can get [facility] and room set up for pt. Called and spoke with T, they agree to take pt back today at 1300. Orders faxed and EMS scheduled for transport at 1300 as requested by T. Faxed Order, Passr, covid results, dc summary, and medication list.
--- NOTE | 2020-08-22 12:00 | NUR ---
PT INCONTINENT OF URINE, PERICARE PERFORMED, PENIS SWOLLEN AND WITH REDNESS, UNABLE TO FULLY RETRACT FORESKIN FOR PERICARE, UNABLE TO ASSESS WOUND ON MEATUS. PT WITH PURPLE, UNSTAGABLE INJURY TO COCCYX, ALLEVYN APPLIED, PLAN FOR PICTURES AT NEXT PERICARE EVENT. PT GIVEN 1 UNIT SS INSULIN FOR BLOOD GLUCOSE 143.
--- NOTE | 2020-08-22 13:10 | NUR ---
PT INCONTINENT OF URINE, PERICARE PERFORMED. WOUND TO COCCYX ASSESSED, PICTURE PLACED IN CHART. EMS TO BEDSIDE FOR NON EMERGENT TRANSPORT TO [facility].
== END 2020-08-22 13:05 | disposition home or self-care (01) | DRG 871 ==
LOC: ED 22:59 → CCU 23:00 → MS 08-20 22:15
PROVIDERS: ADMIT Student in an Organized Health Care Education/Training Program; ATTEND Student in an Organized Health Care Education/Training Program
DX: A41.51 Sepsis due to Escherichia coli [E. coli] (principal); J96.01 Acute respiratory failure with hypoxia; G93.41 Metabolic encephalopathy; N39.0 Urinary tract infection, site not specified; N17.9 Acute kidney failure, unspecified; J90 Pleural effusion, not elsewhere classified; Z20.822 Contact with and (suspected) exposure to COVID-19; R65.20 Severe sepsis without septic shock; F01.50 Vascular dementia, unspecified severity, without behavioral disturbance, psychotic disturbance, mood disturbance, and anxiety; I48.0 Paroxysmal atrial fibrillation; E11.9 Type 2 diabetes mellitus without complications; J44.9 Chronic obstructive pulmonary disease, unspecified; E78.5 Hyperlipidemia, unspecified; E03.9 Hypothyroidism, unspecified; K21.9 Gastro-esophageal reflux disease without esophagitis; G25.81 Restless legs syndrome; E87.70 Fluid overload, unspecified; Z66 Do not resuscitate; Z88.1 Allergy status to other antibiotic agents; Z79.899 Other long term (current) drug therapy; Z79.01 Long term (current) use of anticoagulants; Z79.82 Long term (current) use of aspirin; Z79.4 Long term (current) use of insulin; Z79.51 Long term (current) use of inhaled steroids
CPT/HCPCS: 36415; 36600; 51702; 51798; 71045; 71250; 74176; 80048; 80053; 81001; 82803; 83605; 83735; 83880; 84100; 84484; 85025; 85610; 85730; 87040; 87077; 87088; 87186; 93005; 93010; 94640; 94660; 94760; 94761; 96368; 97110; 97140; 97162; 97167; 97530; 99285-25; C9803; J0692; J0696; J1650; J1815; J1940; J2020; J3370; J7030; J7060; J7121; U0003